=== PATIENT | female | born 1950 | race Caucasian/White ===

== ENCOUNTER → 2022-05-15 09:21 | Outpatient (BNVA) | payer MEDICARE, OTHER, SELFPAY | PROVIDERS: PCP Internal Medicine; Visit Provider Nurse Practitioner Family | DX: N39.46 Mixed incontinence (principal); N39.0 Urinary tract infection, site not specified | CPT/HCPCS: 51798; 81003; 87086; 99203 ==

== ENCOUNTER → 2022-05-23 08:15 | Outpatient (BNVA) | payer MEDICARE, OTHER, SELFPAY | PROVIDERS: PCP Internal Medicine; Visit Provider Internal Medicine Pulmonary Disease | DX: R05.8 Other specified cough (principal); R53.82 Chronic fatigue, unspecified; U09.9 Post COVID-19 condition, unspecified; J45.909 Unspecified asthma, uncomplicated | CPT/HCPCS: 36415; 71046; 80053; 82785; 85025; 86003; 99204 ==

== ENCOUNTER → 2022-07-02 15:31 | Outpatient (BNVA) | payer MEDICARE, OTHER, SELFPAY | PROVIDERS: PCP Internal Medicine; Visit Provider Urology | DX: N39.46 Mixed incontinence (principal); N39.0 Urinary tract infection, site not specified | CPT/HCPCS: 99213 ==

== ENCOUNTER 2022-07-18 13:05 | Outpatient (CLI) | payer MEDICARE, OTHER, SELFPAY | END 2022-07-18 13:06 | disposition home or self-care (01) | LOC: RT 13:07 | PROVIDERS: PCP Internal Medicine; Visit Provider Internal Medicine Pulmonary Disease | DX: J45.909 Unspecified asthma, uncomplicated (principal) | CPT/HCPCS: 94010; 94618; 94726; 94729 ==

== ENCOUNTER → 2022-07-22 10:33 | Outpatient (BNVA) | payer MEDICARE, OTHER, SELFPAY | PROVIDERS: PCP Internal Medicine; Visit Provider Internal Medicine Pulmonary Disease | DX: R05.8 Other specified cough (principal); J45.909 Unspecified asthma, uncomplicated; R53.82 Chronic fatigue, unspecified; U09.9 Post COVID-19 condition, unspecified | CPT/HCPCS: 99214 ==

== ENCOUNTER 2022-07-27 06:00 | Outpatient (RCR) | payer MEDICARE, OTHER, SELFPAY | END 2022-08-26 23:59 | disposition home or self-care (01) | LOC: PULRHB 06:00 | PROVIDERS: PCP Internal Medicine; Visit Provider Internal Medicine Pulmonary Disease | DX: U09.9 Post COVID-19 condition, unspecified (principal) | CPT/HCPCS: 94626 ==

== ENCOUNTER 2022-08-01 01:53 | Emergency (ER) | payer MEDICARE, OTHER, SELFPAY ==
[2022-08-01 01:59] VITALS: BP 137/100; PULSE 85; RESP 16; TEMP 36.6; O2SAT 97; BMI 36.0
[2022-08-01] MEDS: oxymetazoline 0.05% Nasal Spray 15 mL 2 SPRAY NOSTRIL-B (02:08)
--- NOTE | 2022-08-01 02:08 | W.ED.EPISTAX ---
HPI - Epistaxis General: Chief complaint: Epistaxis Stated complaint: Nose Bleed Time Seen by Provider: 08/01/22 01:59 Source: patient Mode of arrival: ambulatory Limitations: no limitations History of Present Illness: 71-year-old female who states that she had a nosebleed that started 2 hours ago. Bleeding is coming from the right nare she states she is applied. She has not been able to get it to stop she is not hypertensive she has no history of blood thinners. Denies any worsening factors. Associated symptoms: Deny fever(s), headache(s) or vomiting Review of Systems Const: Denies: fever(s), chills, body aches or change in appetite Eyes: Denies: blurry vision or eye discomfort ENMT: Reports: epistaxis Card: Denies: chest pain Resp: Denies: dyspnea GI: Denies: abdominal pain, nausea, vomiting or diarrhea : Denies: dysuria Musc: Denies: neck pain or back pain Skin/Breast: Denies: rash Neuro: Denies: headache(s) Psych: Denies: depression Brice/Lymph: Denies: easy bruising All/Imm: Denies: urticaria PFSH ED PFSH: Medical History Asthma Surgical History History of foot surgery History of hysterectomy with oophorectomy Family History Mother , at age 83 COPD (chronic obstructive pulmonary disease) Cataract MRSA (methicillin resistant Staphylococcus aureus) Glaucoma Father , at age 69 COPD (chronic obstructive pulmonary disease) Hernia Pneumothorax Glaucoma Social History Smoking and tobacco status: never smoked Alcohol intake: never Adopted: No Lives independently: Yes Household members: spouse Marital status: Current occupational status: retired History of recent travel: No Physical Exam Const: COMMON NORMALS: no acute distress, patient oriented x3 and healthy appearing HENMT: COMMON NORMALS: normocephalic and atraumatic HEAD & SCALP: normocephalic and atraumatic OTHER: Active bleeding from right nare Eye: COMMON NORMALS: Equal, round and reactive pupils present and EOMs intact bilaterally PUPIL: Yes Equal, round and reactive pupils present Neck/C-Spine: COMMON NORMALS: full ROM and supple Chest: COMMONS NORMALS: normal inspection of the chest and normal palpation of entire chest wall Resp: COMMON NORMALS: normal respiratory effort, No retractions, No use of accessory muscles and clear to auscultation bilaterally AUSCULTATION: clear to auscultation bilaterally Cardio: COMMON NORMALS: regular rate, regular rhythm and No murmurs present (Cardio) RATE: regular rate RHYTHM: regular rhythm GI: COMMON NORMALS: Normal to inspection, nondistended, normoactive bowel sounds present, Soft to palpation, non-tender and no masses PALPATION: Yes Soft to palpation Extremity: COMMON NORMALS: normal to inspection and full ROM Neuro: COMMON NORMALS: patient oriented x3, moves all extremities and no focal motor deficits Psych: COMMON NORMALS: mental status grossly normal, Normal thought process present and cooperative THOUGHT PROCESS: Normal thought process present Skin: COMMON NORMALS: no rashes or lesions noted and no wounds GENERAL SKIN EXAM: no rashes or lesions noted Course Vital Signs: Vital signs: Vital Signs Temperature 97.9 F 08/01/22 01:59 Pulse Rate 71 08/01/22 03:09 Respiratory Rate 20 H 08/01/22 03:09 Blood Pressure 134/76 08/01/22 03:09 Pulse Oximetry 93 08/01/22 03:09 Oxygen Delivery Me thod 08/01/22 01:59 MDM - Epistaxis Medical Decision Making Patient presents here with a nosebleed she had a Rhino Rocket placed we will place her on pain meds and antibiotics she is return in 2 days to have it removed we will get her follow-up with ENT as well. Discharge Plan Discharge Patient Disposition: Home Clinical Impression: Epistaxis Condition: Stable Prescriptions: New cephalexin 500 mg capsule 500 mg PO TID 7 Days Qty: 21 0RF hydrocodone-acetaminophen 5-325 mg tablet 1 tab PO Q6H PRN (Reason: pain) Qty: 14 0RF No Action venlafaxine 150 mg capsule,extended release 24hr 150 mg PO BID hydrochlorothiazide 12.5 mg capsule 12.5 mg PO DAILY albuterol sulfate 90 mcg/actuation HFA aerosol inhaler 2 puff inhalation Q4H PRN multivitamin-calcium carb-iron Tablet PO DAILY Victoza 2-Donnie 0.6 mg/0.1 mL (18 mg/3 mL) pen injector 0.6 mg SUBCUT DAILY superbeets as directed 1XD omeprazole 20 mg capsule,delayed release(DR/EC) 20 mg PO DAILY ipratropium-albuterol 0.5 mg-3 mg(2.5 mg base)/3 mL solution for nebulization 3 ml inhalation Q4H PRN (Reason: wheezing) Qty: 90 3RF methenamine hippurate 1 gram tablet 1 g PO BID Qty: 60 12RF Rx Instructions: Take 1000 mg of vitamin C with each dose of methenamine Discharge Orders: Discharge ED (Routine); Ordered 08/01/22 Ordered By: Kristen Bunch Referrals: Sal Calderon MD [Physician] - 1-3 days Bj Hernandez DO [Primary Care Provider] - Discharge Diet: Advance as tolerated Discharge Activity: Resume usual activity Patient Instructions: Nosebleed (ED) Coding Level of Care Code ED Nurse Informatics Educator for Chg Fwd Exam Comprehensive
[2022-08-01] MEDS: HYDROcodone-acetaminophen 5-325 mg Tablet 1 TAB PO (02:39)
[2022-08-01 03:09] VITALS: BP 134/76; PULSE 71; RESP 20; O2SAT 93
--- NOTE | 2022-08-01 15:00 | DCPLANNER ---
Addendum entered by Barbara Juarez 08/15/22 15:10: Patient had a follow up appointment scheduled with Dr. Calderon - patient did attend appointment. Original Note: alliance manager had message to schedule a follow up appointment for patient with Dr. Calderon, ENT. alliance manager faxed patients information to the office of Dr. Calderon. Patients information will be reviewed, clinic will call patient with appointment information.
== END 2022-08-01 03:11 | disposition home or self-care (01) ==
PROVIDERS: Emergency Provider Emergency Medicine; PCP Internal Medicine
DX: R04.0 Epistaxis (principal)
CPT/HCPCS: 99283

== ENCOUNTER 2022-08-27 06:00 | Outpatient (RCR) | payer MEDICARE, OTHER, SELFPAY | END 2022-09-25 23:59 | disposition home or self-care (01) | LOC: PULRHB 06:00 | PROVIDERS: PCP Internal Medicine; Visit Provider Internal Medicine Pulmonary Disease | DX: U09.9 Post COVID-19 condition, unspecified (principal) | CPT/HCPCS: 94626 ==

== ENCOUNTER 2022-09-26 06:00 | Outpatient (RCR) | payer MEDICARE, OTHER, SELFPAY | END 2022-10-26 23:59 | disposition home or self-care (01) | LOC: PULRHB 06:00 | PROVIDERS: PCP Internal Medicine; Visit Provider Internal Medicine Pulmonary Disease | DX: U09.9 Post COVID-19 condition, unspecified (principal) | CPT/HCPCS: 94626 ==

== ENCOUNTER → 2022-11-05 14:29 | Outpatient (BNVA) | payer MEDICARE, OTHER, SELFPAY | PROVIDERS: PCP Internal Medicine; Visit Provider Urology | DX: N39.46 Mixed incontinence (principal); N39.0 Urinary tract infection, site not specified | CPT/HCPCS: 81003; 99213 ==

== ENCOUNTER → 2023-04-14 09:21 | Outpatient (BNVA) | payer MEDICARE, OTHER, SELFPAY | PROVIDERS: PCP Internal Medicine; Visit Provider Urology | DX: N39.0 Urinary tract infection, site not specified (principal); N39.46 Mixed incontinence | CPT/HCPCS: 99213 ==